=== PATIENT | female | born 1965 | race Caucasian/White ===

== ENCOUNTER 2020-06-18 10:46 | Emergency (ER) | payer OTHER, SELFPAY | END 2020-06-18 11:32 | disposition home or self-care (01) | LOC: ERS 10:46 | DX: K04.7 Periapical abscess without sinus (principal) | CPT/HCPCS: 99283 ==

== ENCOUNTER 2023-09-05 13:42 | Outpatient (CLI) | payer BC | END 2023-09-05 13:43 | disposition home or self-care (01) | LOC: BICMAMMO 13:42 | PROVIDERS: ATTEND Family Medicine | DX: N63.20 Unspecified lump in the left breast, unspecified quadrant (principal) | CPT/HCPCS: 77066; G0279 ==